=== PATIENT | male | born 1950 | race Hispanic/Latino ===

== ENCOUNTER 2021-03-28 07:39 | Outpatient (CLI) | payer MEDICARE, OTHER ==
--- NOTE | 2021-03-28 09:15 | Cat Scan Report ---
CT ABDOMEN AND PELVIS WITHOUT CONTRAST INDICATION / CLINICAL INFORMATION: Benign prostatic hyperplasia with lower urinary tract symptoms. TECHNIQUE: Axial CT images were obtained through the abdomen and pelvis without IV contrast. All CT scans at this location are performed using CT dose reduction for ALARA by means of automated exposure control. COMPARISON: None available. FINDINGS: LOWER CHEST: No significant abnormality. AORTA / ARTERIES: Mild atherosclerotic calcification without acute abnormality. IVC / VEINS: No significant abnormality. LYMPH NODES: No significant adenopathy. COLON: No significant abnormality. APPENDIX: No significant abnormality. STOMACH / SMALL BOWEL: No significant abnormality. PERITONEUM: No free fluid. No free air. No fluid collection. LIVER: No significant abnormality. GALLBLADDER: No significant abnormality. BILE DUCTS: No significant abnormality. PANCREAS: No significant abnormality. SPLEEN: No significant abnormality. ADRENALS: No significant abnormality. RIGHT KIDNEY / URETER: There is an exophytic simple cyst off of the midportion of the right kidney. N o hydronephrosis. LEFT KIDNEY / URETER: There is a simple cyst off of the inferior pole of the left kidney. No hydronep hrosis. URINARY BLADDER: No significant abnormality. REPRODUCTIVE ORGANS: Prostate is enlarged. SKELETAL SYSTEM: No significant abnormality. ADDITIONAL FINDINGS: None. IMPRESSION: 1. Enlargement of the prostate. 2. Bilateral renal cysts. Signer Name: Torsten Henao DO Signed: 03/28/2021 9:10 AM Workstation Name: [id number]
== END 2021-03-28 07:40 | disposition home or self-care (01) ==
LOC: CT 07:39
PROVIDERS: ATTEND Urology
DX: N28.1 Cyst of kidney, acquired (principal); N40.1 Benign prostatic hyperplasia with lower urinary tract symptoms
CPT/HCPCS: 74176